=== PATIENT | female | born 1985 | race Caucasian/White ===

== ENCOUNTER 2017-09-26 14:16 | Inpatient (IN) ==
[2017-09-26] MEDS ORDERED: Metoclopramide 10 MG/2 ML VIAL IVP PRN (14:39)
[2017-09-26] MEDS ORDERED: Ondansetron 4 MG/2 ML VIAL IVP PRN (14:39)
[2017-09-26] MEDS ORDERED: Famotidine 20 MG/2 ML VIAL IVP PRN (14:39)
[2017-09-26] MEDS ORDERED: Naloxone 0.4 MG/ML INJ IVP PRN (14:39)
[2017-09-26] MEDS ORDERED: miSOPROStol 25 MCG TABLET VG PRN (14:43)
[2017-09-26 14:56] LABS: Basophils % 0.4 %; Eosinophils # 0.1 K/mcL (0.0-0.6); Eosinophils % 1.1 %; Hematocrit 40.5 % (35.3-44.9); Hemoglobin 13.8 g/dL (11.5-15.4); Immature Granulocytes % 1.1 % (0-4); Lymphocytes # 1.3 K/mcL (0.6-4.6); Lymphocytes % 18.3 %; Mean Corpuscular HGB Conc 34.1 g/dL (31.6-35.5); Mean Corpuscular Hemoglobin 30.6 pg (28.0-33.3); Mean Corpuscular Volume 89.8 fL (83.0-100.0); Mean Platelet Volume 10.6 fL (9.4-12.4); Monocytes # 0.6 K/mcL (0.0-1.3); Monocytes % 8.2 %; Platelet Count 198 K/mcL (140-400); Red Blood Count 4.51 M/mcL (3.82-4.97); Red Cell Distribution Width 13.1 % (11.5-14.5); Segmented Neutrophils % 70.9 %
--- NOTE | 2017-09-26 14:58 | OB/GYN History & Physical ---
Date of Encounter: 09/26/17 Time of Encounter: 14:51 Assessment and Plan (1) 40 weeks gestation of Current visit: Yes Status: Acute IOL due to LGA - EFW 4192 grams Admit to L&D monitoring: baseline 150 with variability - Category I Induction via PO cytotec Expect (2) LGA (large for gestational age) fetus Current visit: Yes Status: Acute History of Present Illness Chief complaint: Induction of Labor HPI: Ms. Tom is a 32 year old female at 40w4d presenting to L&D from the office for induction of labor due to LGA with EFW of 4192 grams. She reports good movement. Denies contractions, LOF, vaginal bleeding, or vaginal discharge. She reports no complications with this . She denies other medical history. She denies fevers, chills, headaches, vision changes, dyspnea, abdominal pain, dysuria, or edema. She reports that if she eventually needs a c- section that she would like to consider a tubal as well. Blood type O+ GBS negative Rubella Immune Varicella Immune All other serologies negative Past Med Surg Social Fam HX - Past Medical History Medical history: no medical history Psychiatric history: no psych history - Social History Smoking Status: Former smoker Alcohol use: none Drug use: none Activity Level: Independent ambulation Obstetrical History - Pregnancies : 2 Para: 1 Term: 1 : 0 Ab's: 0 Livin Review of System OB All systems PM: reviewed and no additional remarkable complaints except as stated Exam - Constitutional Constitutional: well developed, well nourished, no acute distress, average body habitus - HEENT HEENT: Normocephaly, Mucus Membranes Moist - Lungs Respiratory exam: CTAB - Cardiovascular Cardiovascular exam: RRR, +S1, +S2 - Abdomen Abdomen: Present: bowel sounds normal - Extremities Extremities exam: normal capillary refill, normal inspection - Cervix Dilation: 2 (per office exam) Effacement: 75 Station: -3 - Uterus Uterus exam: Present: normal size, normal contour Results Result Diagrams: 09/26/17 14:41 All other labs normal. - VTE Reasons for not Prescribing Prophylaxis: Treatment not Indicated - Low risk for VTE - Attending Attestation I examined this patient and my medical decision-making was reviewed with the Resident Physician. I agree with the documented findings, disposition and treatment plan as described. Maria Dolores Calvert CNM
[2017-09-26 15:09] LABS: Amphetamine Screen,Urine Negative ng/mL (Cutoff=1000); Barbiturate Screen,Urine Negative ng/mL (Cutoff=200); Benzodiazepines Screen,Urine Negative ng/mL (Cutoff=200); Cannabinoid Screen,Urine Negative ng/mL (Cutoff = 50); Cocaine Screen,Urine Negative ng/mL (Cutoff= 300); Opiate Screen,Urine Negative ng/mL (Cutoff=300); Phencyclidine Screen,Urine Negative ng/mL (Cutoff=25)
[2017-09-26] MEDS ORDERED: miSOPROStol 25 MCG TABLET PO PRN (15:09)
--- NOTE | 2017-09-26 20:31 | Anesthesia Evaluation PreOp ---
Date of Encounter: 09/26/17 Time of Encounter: 20:29 - Past History Planned Operation: CINTHYA Cardiac History: Denies any Significant Hx Pulmonary History: Denies Any Significant HX TESTING AND REGULATING TECHNICIAN History: Other (migraines) Other Medical History: Denies Any Significant HX Anesthesia History: No Prior Anesthetic Complications, Past Anesthesia (Saliva duct surgery) : Yes Alcohol Use: none Drug use: none Medications and Allergies 3 Allergy/AdvReac Type Severity Reaction Status Date / Time No Known Allergies Allergy Verified 09/26/17 16:15 - Meds/Allergy Pre-op Review Medications Reviewed: Yes Allergies Reviewed: Yes Beta Blockers on Current Med List: No Anesthesia Results - Labs 09/26/17 14:41 Anesthesia Exam BP 139/83 P 68 R 16 T 97.4 Height: 5'2" Weight: 69 NPO (# of Hours): 3 Pain Scale: 0 Pain Scale Used: Numeric (1 - 10) - HEENT Pupil (Motor): Pupils equal Mallampati: II Teeth: Normal Oral Opening: Greater than 3 - TESTING AND REGULATING TECHNICIAN LOC: Oriented TESTING AND REGULATING TECHNICIAN Motor: Normal RUE, Normal LUE, Normal RLE, Normal LLE, Normal Face TESTING AND REGULATING TECHNICIAN Sensory: Normal: RUE, LUE, RLE, LLE, Face - Cardiac Rhythm: Regular Murmur: None JVD: No Carotid Bruit: No - Pulmonary Breath Sounds: bilateral Clear Respiratory Effort: Symmetrical Anesthesia Assess/Plan ASA Score: 2 Modified [place] Scale for Level of Consciousness: Cooperative, oriented, and tranquil Anesthetic Plan: Regional Autologous Blood: No Monitoring Plan: Standard Monitors Recovery Plan: Other
[2017-09-26] MEDS: Ringers Solution, Lactated 1,000 ML IVC SCH (20:41)
[2017-09-26] MEDS: Oxytocin 20 units/ LR 1000 mL 20 UNIT/1,000 ML BAG IVC SCH (21:19)
--- NOTE | 2017-09-27 03:16 | OB Labor Progress Note ---
Date of Encounter: 09/27/17 Time of Encounter: 03:13 Labor Progress Note - Subjective Subjective: Patient making frequent position changes. Pain is tolerable. - Vital Signs Vital Signs: VSS - Cervix Cervix: 2-3/70/-2 posterior moderate firmness - Heart Tones Heart Tones: 120's moderate variability - Kirk Kirk: Contractions every 2-3 minutes - Interventions Interventions: Intracervical muro bulb with 30mL placed without difficulty. Fetus and patient tolerated well. - Plan Plan: Continue routine labor management Continue pitocin for adequate labor contractions Patient may have epidural upon request Consider AROM for augmentation GBS negative Anticipate vaginal delivery POC per consult with Dr Balderas
[2017-09-27] MEDS: *HR* Nalbuphine 20 MG/ML AMPUL IVP PRN ×2 (03:27→03:49)
[2017-09-27] MEDS ORDERED: *HR* Nalbuphine 20 MG/ML AMPUL IVP ONE (03:47)
[2017-09-27] MEDS ORDERED: Mag Hydrox/Al Hydrox/Simeth 30 ML UDC PO PRN (04:23)
[2017-09-27] MEDS ORDERED: Naloxone 0.4 MG/ML INJ IVP PRN (06:05)
[2017-09-27] MEDS ORDERED: Bupivacaine-MPF 0.25% 10 ML VIAL EP ONE (06:05)
[2017-09-27] MEDS ORDERED: *HR* FentaNYL (PF) 100 MCG/2 ML VIAL EP ONE (06:05)
[2017-09-27] MEDS ORDERED: Ondansetron 4 MG/2 ML VIAL IVP PRN (06:05)
[2017-09-27] MEDS ORDERED: EPHEDrine 50 MG/ML VIAL IVP PRN (06:05)
[2017-09-27] MEDS ORDERED: Bupivacaine-MPF 0.25% 10 ML VIAL ONE (06:13)
[2017-09-27] MEDS ORDERED: *HR* FentaNYL (PF) 100 MCG/2 ML VIAL ONE (06:13)
[2017-09-27] MEDS ORDERED: Epidural Premix (fent/bupiv) 110 ML EP SCH (06:15)
[2017-09-27] MEDS ORDERED: Epidural Premix (fent/bupiv) 110 ML EP ONE ×3 (06:21→19:56)
--- NOTE | 2017-09-27 07:47 | Anesthesia Procedures ---
Date of Encounter: 09/27/17 Time of Encounter: 07:20 Procedures: Anesthesia - Epidural/Spinal Patient ID/Chart reviewed: Yes Patient examined: Yes OB Eval: Gestational age: 40 OB Eval: : 2 OB Eval: Hx Para: 1 OB Eval: Dilated at (cm): 7 OB Eval: Contractions: Non-stressed pattern Consent Obtained: Yes Supplemental Oxygen: None/Room Air Site Prep: Aseptic Technique, Sterile prep and drape, Povidone-Iodine 1% Patient position: upright Local Anesthetic: Lidocaine 1% Amount of Local Anesthetic used: 3 Touhy Needle Gauge: 18 Touhy Needle Depth (cm): 5 Catheter Depth at Skin (cm): 14 Test Dose (1.5% Lido + Epi): Volume given (mls): 3 Test Dose Result: Negative Loading Dose: 0.25% Marcaine (mls): 10 Loading Dose: Fentanyl (mcg): 100 Loading Dose Administered: Thru Catheter Infusion Med: 0.125% Bupivacaine w/ 2 mcg/ml Fentanyl Infusion Rate (mls/hr): [address]: Tegaderm, Tape Interspace Used: L4-L5 Loss of Resistance (KATY): Yes Blood: No CSF: No Paresthesia: No Procedure: CINTHYA placed 1st pass without any immediate noted complications. VSS Vitals + FHT's: 0720 BP 147/70 P 72 0740 BP 123/62 P 62
--- NOTE | 2017-09-27 10:38 | OB Labor Progress Note ---
Date of Encounter: 09/27/17 Time of Encounter: 10:36 Labor Progress Note - Subjective Subjective: Patient resting with epidural in place. Discussed POC with patient. Patient denies any questions or concerns - Cervix Cervix: 6.5/90/-1 - Heart Tones Heart Tones: 120 bpm moderate variability variables and early decels noted. - Marcellus Marcellus: 1-3 min apart - Interventions Interventions: SVE, AROM moderate amount of clear fluid. IUPC placed without difficulty. Patient tolerated well. Patient repositioned. - Plan Plan: Continue labor management.
--- NOTE | 2017-09-27 16:01 | OB Labor Progress Note ---
Date of Encounter: 09/27/17 Time of Encounter: 15:59 Labor Progress Note - Subjective Subjective: Patient resting in bed. Denies any pain at this time. - Cervix Cervix: 9.5/100/0 - Heart Tones Heart Tones: 135 bpm moderate variability - Edon Edon: 2-3 min apart - Interventions Interventions: SVE, repositioned - Plan Plan: Continue labor management.
[2017-09-27] MEDS: Famotidine 20 MG/2 ML VIAL IVP ONE ×2 (16:36→23:23)
[2017-09-27] MEDS ORDERED: *HR* Ropivacaine/PF 0.2% 10 ML AMPUL ONE (19:41)
[2017-09-27] MEDS ORDERED: Acetaminophen 325 MG TABLET PO ONE (19:41)
[2017-09-27] MEDS ORDERED: CeFAZolin Premix DUPLEX 2,000 MG/50 ML BAG IVPB ONE (21:04)
[2017-09-27] MEDS: Ringers Solution, Lactated 1,000 ML IVC SCH (21:06)
--- NOTE | 2017-09-27 21:19 | OB Labor Progress Note ---
Date of Encounter: 09/27/17 Time of Encounter: 20:55 Labor Progress Note - Subjective Subjective: Patient was feeling pressure and would like to try and push again. - Cervix Cervix: 10/100/0 - Heart Tones Heart Tones: 155 bpm moderate variability - Baggs Baggs: 3-4 min apart - Interventions Interventions: Patient pushed for approximately 30 min this time without any movement of baby. Patient was repositioned several times and attempted pushing different ways. Patient had previously pushed for an hour and 15 min at 1800. Caput noted. Dr. Townsend notified and decision for section for failure to descend with probable CPD. - Plan Plan: prepare for primary c/s, anesthesia notified.
[2017-09-27] MEDS ORDERED: Acetaminophen/Butalbital/CaffeineTABLET PO ONE (22:57)
[2017-09-27] MEDS ORDERED: *HR* Oxytocin 10 UNIT/ML VIAL IM ONE (23:24)
[2017-09-27] MEDS ORDERED: Ringers Solution, Lactated 1,000 ML ONE (23:54)
[2017-09-28] MEDS ORDERED: *HR* Promethazine 25 MG/ML VIAL IVP PRN (00:11)
[2017-09-28] MEDS ORDERED: Morphine Sulfate/PF 5mg/10mL Vial ONE (00:18)
[2017-09-28] MEDS ORDERED: *HR* FentaNYL (PF) 100 MCG/2 ML VIAL ONE (00:27)
[2017-09-28] MEDS ORDERED: Ondansetron 4 MG/2 ML VIAL ONE (00:28)
[2017-09-28] MEDS ORDERED: Chloroprocaine/PF 20 ML VIAL INFILT ONE ×2 (00:28→00:54)
[2017-09-28] MEDS ORDERED: Ibuprofen 600 MG TABLET PO PRN (00:49)
[2017-09-28] MEDS ORDERED: Metoclopramide 10 MG/2 ML VIAL IVP PRN ×2 (00:49→04:28)
[2017-09-28] MEDS ORDERED: *HR* OxyCODONE/APAP 5/325 TABLET PO PRN (00:49)
[2017-09-28] MEDS ORDERED: Sennosides 8.6 MG TABLET PO PRN ×2 (00:49→04:28)
[2017-09-28] MEDS ORDERED: Simethicone 80 MG TAB.CHEW PO PRN ×2 (00:49→04:28)
[2017-09-28] MEDS ORDERED: Ondansetron 4 MG/2 ML VIAL IVP PRN ×2 (00:49→04:28)
--- NOTE | 2017-09-28 00:49 | OB/GYN Procedure Note ---
Section - Date of procedure: 09/28/17 Preop diagnosis: arrest of descent Post-op diagnosis: same Procedure: primary low transverse, bilateral tubal ligation Surgeon: Red Townsend Estimated blood loss (cc): 500 Was there an vector control assistant present: Yes Cloud Automation Tester: Barbi Randolph Anesthesiologist: Karen Walls Banquet Kitchen Supervisor: Walter Jacobson Anesthesia Type: Epidural section complications: none Disposition: L&D Recovery Room Specimens: Placenta, Cord blood, Right tube segment, Left tube segment - Infant (s) Infant A Infant Delivery Date: 09/28/17 Delivery Time: 00:00 Presentation: vertex Gender: Male Gram Weight: 3925 kg Shoulder Dystocia: not encountered - Narrative Narrative: Patient was brought to the operating room with satisfactory epidural anesthesia. The abdomen was prepped and draped in a sterile fashion. A Pfannenstiel incision was made and carried sharply down to the level of fascia. The fascia was incised transversely. The fascia was dissected away from the underlying rectus muscles. With sharp and blunt dissection, rectus muscles were divided in midline. The perineum was entered bluntly. Transverse incision was made across the bladder peritoneum. The bladder was dissected away from the underlying lower uterine segment. Bladder retractor was placed to protect the bladder. The lower uterine segment was entered sharply with a scalpel. Incision was manually extended. The 's head was pulled up and delivered easily as were the shoulders and body. The mouth and oropharynx were suctioned. The cord was clamped and cut. The infant was passed off to the waiting gypsum roofer. Placenta was extracted completely and found to be intact. Uterus was explored and found to be empty. Uterus was delivered through the abdominal incision and massaged vigorously. Intravenous Pitocin was administered. Clamps were placed about the margins of the uterine incision, which was closed primarily with a running locking stitch of 0 Vicryl with adequate hemostasis. Secondary running locking stitch was placed for extra strength to the wound. At this point, attention was diverted to the patient's tubes, a Tracey clamp grasped the isthmic portion of each tube and approximately 1-cm knuckle on either side was tied off with two lengths of 0 plain catgut. Intervening knuckle was excised and passed off the field. The proximal end of the tubal mucosa was cauterized. Cul-de-sac and gutters were suctioned vigorously. The uterus was returned to its proper anatomic position in the abdomen. The fascia was closed with a simple running stitch of 0 vicryl. The skin was closed with running subcuticular of 4-0 vicryl. Uterus was expressed of its contents. Patient was brought to the recovery room in satisfactory condition. There were no complications. There was 500 cc of blood loss. All sponge, needle, and instrument counts were reported to be correct.
[2017-09-28] MEDS ORDERED: *HR* Phenylephrine 10 MG/ML VIAL ONE (00:54)
[2017-09-28] MEDS ORDERED: Oxytocin 20 units/ LR 1000 mL 20 UNIT/1,000 ML BAG IVC SCH ×3 (01:00→04:30)
[2017-09-28] MEDS ORDERED: *HR* Morphine 2 MG/ML SYRINGE IVP PRN (01:11)
[2017-09-28] MEDS ORDERED: *HR* HYDROmorphone (PF) 1 MG/ML SYRINGE IVP PRN (01:11)
[2017-09-28] MEDS: Oxytocin 20 units/ LR 1000 mL 20 UNIT/1,000 ML BAG IVC SCH (01:18)
[2017-09-28] MEDS: *HR* HYDROmorphone (PF) 1 MG/ML SYRINGE IVP PRN ×3 (01:19→02:37)
[2017-09-28] MEDS ORDERED: Rho Immune Globulin 1,500 UNIT SYRINGE IM ONE (04:28)
[2017-09-28] MEDS ORDERED: *HR* HYDROmorphone 2 MG/ML SYRINGE IVP PRN (04:51)
[2017-09-28] MEDS: *HR* OxyCODONE/APAP 5/325 TABLET PO PRN (06:48)
--- NOTE | 2017-09-28 07:10 | Anesthesia Evaluation Post Op ---
Date of Encounter: 09/28/17 Time of Encounter: 07:09 - Vital Signs Vital Signs: Vital Signs/O2 Sat, Most Current Temp Pulse Resp BP Pulse Ox 98.3 F 85 14 118/67 96 09/28/17 04:28 09/28/17 04:28 09/28/17 04:28 09/28/17 04:28 09/28/17 04:28 - Lungs Lungs: Clear Ascult./Percussion - Airway Airway: Non-obstructed - Cardiovascular Regular Rate - Mental Status Mental Status: Alert & Oriented, Answers Appropriately - Pain Pain Scale: 0 - Nausea Vomiting Nausea Vomiting: Not Present - Hydration Hydration: Tolerates oral liquids - Discharge PostOp Status: Discharge Patient to home
[2017-09-28] MEDS ORDERED: Piperacillin/Tazobactam 2.25 GM in D5% in Water (Mini-Bag+) 100 ML IVPB SCH (08:00)
[2017-09-28] MEDS ORDERED: Prenatal Vit/FA 1 EACH TABLET PO SCH (09:00)
[2017-09-28] MEDS: Piperacillin/Tazobactam 3.375 GM/200 ML BAG IVPB SCH ×2 (09:29→17:35)
[2017-09-28] MEDS: Ibuprofen 600 MG TABLET PO PRN ×2 (13:17→19:19)
[2017-09-29] MEDS: *HR* OxyCODONE/APAP 5/325 TABLET PO PRN ×3 (01:11→23:22)
[2017-09-29 05:33] LABS: Basophils % 0.2 %; Eosinophils # 0.2 K/mcL (0.0-0.6); Immature Granulocytes % 0.8 % (0-4); Lymphocytes # 1.3 K/mcL (0.6-4.6); Lymphocytes % 8.3 %; Mean Corpuscular HGB Conc 33.4 g/dL (31.6-35.5); Mean Corpuscular Hemoglobin 30.6 pg (28.0-33.3); Mean Corpuscular Volume 91.4 fL (83.0-100.0); Mean Platelet Volume 10.8 fL (9.4-12.4); Monocytes # 0.8 K/mcL (0.0-1.3); Platelet Count 193 K/mcL (140-400); Red Cell Distribution Width 13.3 % (11.5-14.5); Segmented Neutrophils % 84.7 %
[2017-09-29 05:38] LABS: Hemoglobin 10.7 g/dL (11.5-15.4); Neutrophils # 13.4 K/mcL (1.6-8.9)
--- NOTE | 2017-09-29 07:38 | OB/GYN Progress Note ---
Date of Encounter: 09/29/17 Time of Encounter: 07:30 - Assessment and Plan (1) Status post primary low transverse section Current Visit: Yes Status: Acute Discharge home in a.m. if stable and afebrile Subjective - Subjective Interval history: Patient is doing well this morning she is having minimal pain no nausea vomiting. Patient was given antibiotics for 24 hours has been afebrile since delivery and a bionics have been stopped. Patient encouraged to ambulate and use her incentive spirometry. Patient baby still in the nursery but is doing better. If patient is stable and afebrile by tomorrow if baby is doing well possible discharge at that time. Patient reports: appetite normal, voiding normally, pain well controlled, ambulating normally Monitor: doing well, in NICU Objective - Vital Signs Latest vital signs: Vital Signs Temp Pulse Resp BP Pulse Ox 09/28/17 20:15 97.7 F 64 16 104/64 97 09/28/17 16:30 97.5 F L 74 16 123/51 97 09/28/17 12:55 98.2 F 86 16 113/72 97 09/28/17 08:20 97.7 F 73 16 113/72 96 Intake and Output 09/28/17 09/28/17 09/29/17 15:59 23:59 07:59 Intake Total 830 / 830 750 / 750 Output Total 525 / 525 500 / 500 Balance 305 / 305 250 / 250 Intake: IV Fluids 200 / 200 Zosyn Premix 3.375 GM/200 ML 3. 200 / 200 375 gm In 200 ml @ 50 mls/hr IVPB Q8HR [facility] Rx#:[id number] Oral 630 / 630 750 / 750 Output: Urine 500 / 500 Catheter 525 / 525 - Exam Lungs: bilateral: normal Chest: Normal S1, Normal S2 Extremities: Present: normal Abdomen: Present: normal appearance Incision: Present: dry, dressed Uterus: Present: firm - Labs Labs: Laboratory Results - last 24 hr 09/29/17 04:05 WBC 15.8 H D RBC 3.50 L Hgb 10.7 L D Hct 32.0 L MCV 91.4 MCH 30.6 MCHC 33.4 RDW 13.3 Plt Count 193 MPV 10.8 Immature Gran % 0.8 Seg Neutrophils % 84.7 Lymphocytes % 8.3 Monocytes % 5.0 Eosinophils % 1.0 Basophils % 0.2 Neutrophils # 13.4 H Lymphocytes # 1.3 Monocytes # 0.8 Eosinophils # 0.2 Basophils # 0.0
[2017-09-29] MEDS: Prenatal Vit/FA 1 EACH TABLET PO SCH (08:19)
[2017-09-29] MEDS: Ibuprofen 600 MG TABLET PO PRN ×2 (11:25→17:00)
[2017-09-30] MEDS: *HR* OxyCODONE/APAP 5/325 TABLET PO PRN (05:42)
--- NOTE | 2017-09-30 07:49 | OB/GYN Progress Note ---
Date of Encounter: 09/30/17 Objective - Vital Signs Latest vital signs: Vital Signs Temp Pulse Resp BP Pulse Ox 09/29/17 19:40 97.8 F 59 14 131/84 100 09/29/17 11:28 98.4 F 77 16 109/71 Intake and Output 09/29/17 09/29/17 09/30/17 15:59 23:59 07:59 Intake Total 1180 / 1180 1979 200 / 200 Output Total 1750 / 1750 2600 / 2600 400 / 400 Balance -570 / -570 -620 / -620 -200 / -200 Intake: Oral 1180 / 1180 1979 200 / 200 Output: Urine 1750 / 1750 2600 / 2600 400 / 400 Other: Meal Lunch Dinner Percent of Meal Consumed 100% 100% Weight 66.814 kg Patient Weight 09/30/17 23:59 Weight 66.814 kg
--- NOTE | 2017-09-30 08:12 | Discharge Summary ---
Date of Encounter: 09/30/17 Time of Encounter: 09:10 - Discharge Diagnosis (1) 40 weeks gestation of Priority: Primary Status: Acute (2) LGA (large for gestational age) fetus Priority: Secondary Status: Acute (3) Status post primary low transverse section Priority: Secondary Status: Acute (4) Anemia, Priority: Secondary Status: Acute Comments: hemoglobin = 10.7 - Discharge Medications Prescriptions: OxyCODONE/APAP 5/325 [Percocet 5/325 MG] 1 each PO Q4HR PRN #28 tablet PRN Reason: Moderate pain 4-6 Ibuprofen [Motrin] 600 mg PO Q6HR PRN #40 tablet PRN Reason: Cramping Docusate [Colace] 100 mg PO BID #10 capsule Home Medications: Docusate [Colace] 100 mg PO BID #10 capsule 09/30/17 [Rx] Ibuprofen [Motrin] 600 mg PO Q6HR PRN #40 tablet 09/30/17 [Rx] OxyCODONE/APAP 5/325 [Percocet 5/325 MG] 1 each PO Q4HR PRN #28 tablet 09/30/17 [Rx] Vit/FA 1 each PO DAILY tablet 09/30/17 [Rx] Allergies/Adverse Reactions: 3 Allergy/AdvReac Type Severity Reaction Status Date / Time No Known Allergies Allergy Verified 09/26/17 16:15 Data Procedures and tests throughout hospitalization: Laboratory Tests 09/26/17 09/26/17 09/29/17 14:41 14:44 04:05 WBC 7.1 15.8 H D RBC 4.51 3.50 L Hgb 13.8 10.7 L D Hct 40.5 32.0 L MCV 89.8 91.4 MCH 30.6 30.6 MCHC 34.1 33.4 RDW 13.1 13.3 Plt Count 198 193 MPV 10.6 10.8 Immature Gran % 1.1 0.8 Seg Neutrophils % 70.9 84.7 Lymphocytes % 18.3 8.3 Monocytes % 8.2 5.0 Eosinophils % 1.1 1.0 Basophils % 0.4 0.2 Neutrophils # 5.0 13.4 H Lymphocytes # 1.3 1.3 Monocytes # 0.6 0.8 Eosinophils # 0.1 0.2 Basophils # 0.0 0.0 Urine Opiates Screen Negative Ur Barbiturates Screen Negative Ur Phencyclidine Scrn Negative Ur Amphetamines Screen Negative U Benzodiazepines Scrn Negative Urine Cocaine Screen Negative U Marijuana (THC) Screen Negative Date of admission: 09/26/17 14:16 Primary care physician: PCP NONE Discharging clinician: Nury Calvert Anticipated date of discharge: 09/30/17 - Patient Status Disposition: Home, Self-Care Condition: Good Functional capacity at discharge: independent ambulation Overall status at discharge: patient is progressing back to baseline - Discharge Instructions Follow Up With: NONE,PCP [Primary Care Provider] - Red Townsend MD [Partnered Physician] - - Diet and Activity Activity: increase activity as tolerated Diet: regular diet Hospital Course Reason for admission: induction of labor Delivery: section Episiotomy: none Laceration: none Other procedures: none complications: none Discharge diagnosis: IUP at term delivered [place] baby: male Hospital course: - Date of procedure: 09/28/17 Preop diagnosis: arrest of descent Post-op diagnosis: same Procedure: primary low transverse, bilateral tubal ligation Surgeon: Red Townsend Estimated blood loss (cc): 500 Was there an assistant portfolio manager present: Yes Commercial Housekeeper: Barbi Randolph Anesthesiologist: Karen Walls Industrial Engineering Analyst: Walter Jacobson Anesthesia Type: Epidural section complications: none Disposition: L&D Recovery Room Specimens: Placenta, Cord blood, Right tube segment, Left tube segment - Infant (s) Infant A Delivery Date: 09/28/17 Delivery Time: 00:00 Presentation: vertex Gender: Male Gram Weight: 3925 kg Shoulder Dystocia: not encountered Patient was given antibiotics for 24 hrs and has been been afebrile since delivery. Patient is stable and ready for discharge. Time Attestation: Total time spent providing and/or coordinating discharge services: Time Spent: Less than 30 minutes - VTE Reasons for not Prescribing Prophylaxis: Treatment not Indicated - Low risk for VTE Documentation of Mechanical Device: Intermittent pneumatic compression device - Attending Attestation I examined this patient and my medical decision-making was reviewed with the Resident Physician. I agree with the documented findings, disposition and treatment plan as described. Maria Dolores Calvert CNM Exam - Constitutional Vitals: Temp Pulse Resp BP Pulse Ox 97.8 F 59 14 131/84 100 09/29/17 19:40 09/29/17 19:40 09/29/17 19:40 09/29/17 19:40 09/29/17 19:40 General appearance IM: pleasant, answers questions appropriately - Respiratory Respiratory exam: Present: CTAB - Cardiovascular Cardiovascular exam IM: Present: RRR - GI/Abdominal GI/Abdominal exam IM: soft, no peritoneal signs Incision: normal, dry, intact - Uterine Tone: Firm Uterus Position: 2 Fingers Below Umbilicus - Extremities Exam Extremities exam IM: Present: normal capillary refill, pedal edema - Neurological Exam Neurological exam: no focal deficits
[2017-09-30 08:18] VITALS: BP 128/69
--- NOTE | 2017-09-30 08:33 | Discharge Summary ---
Date of Encounter: 09/30/17 - Discharge Medications Home Medications: Docusate [Colace] 100 mg PO BID #10 capsule 09/30/17 [Rx] Ibuprofen [Motrin] 600 mg PO Q6HR PRN #40 tablet 09/30/17 [Rx] OxyCODONE/APAP 5/325 [Percocet 5/325 MG] 1 each PO Q4HR PRN #28 tablet 09/30/17 [Rx] Vit/FA 1 each PO DAILY tablet 09/30/17 [Rx] Allergies/Adverse Reactions: 3 Allergy/AdvReac Type Severity Reaction Status Date / Time No Known Allergies Allergy Verified 09/26/17 16:15 Data Procedures and tests throughout hospitalization: Laboratory Tests 09/26/17 09/26/17 09/29/17 14:41 14:44 04:05 WBC 7.1 15.8 H D RBC 4.51 3.50 L Hgb 13.8 10.7 L D Hct 40.5 32.0 L MCV 89.8 91.4 MCH 30.6 30.6 MCHC 34.1 33.4 RDW 13.1 13.3 Plt Count 198 193 MPV 10.6 10.8 Immature Gran % 1.1 0.8 Seg Neutrophils % 70.9 84.7 Lymphocytes % 18.3 8.3 Monocytes % 8.2 5.0 Eosinophils % 1.1 1.0 Basophils % 0.4 0.2 Neutrophils # 5.0 13.4 H Lymphocytes # 1.3 1.3 Monocytes # 0.6 0.8 Eosinophils # 0.1 0.2 Basophils # 0.0 0.0 Urine Opiates Screen Negative Ur Barbiturates Screen Negative Ur Phencyclidine Scrn Negative Ur Amphetamines Screen Negative U Benzodiazepines Scrn Negative Urine Cocaine Screen Negative U Marijuana (THC) Screen Negative Date of admission: 09/26/17 14:16 Primary care physician: PCP NONE - Patient Status Disposition: Home, Self-Care Condition: Good Functional capacity at discharge: independent ambulation Overall status at discharge: patient is progressing back to baseline - Discharge Instructions Follow Up With: NONE,PCP [Primary Care Provider] - Hospital Course DIAGNOSTIC MEDICAL SONOGRAPHER Time Attestation: Total time spent providing and/or coordinating discharge services: Exam - Constitutional Vitals: Temp Pulse Resp BP Pulse Ox 97.8 F 59 14 131/84 100 09/29/17 19:40 09/29/17 19:40 09/29/17 19:40 09/29/17 19:40 09/29/17 19:40 - VTE Reasons for not Prescribing Prophylaxis: Treatment not Indicated - Low risk for VTE Documentation of Mechanical Device: Intermittent pneumatic compression device
[2017-09-30] MEDS: Prenatal Vit/FA 1 EACH TABLET PO SCH (09:29)
[2017-09-30] MEDS: Ibuprofen 600 MG TABLET PO PRN (12:04)
== END 2017-09-30 13:39 | disposition home or self-care (01) | DRG 766 ==
LOC: 1NENULAB 14:16 → 1NENUOBS 09-28 03:53